=== PATIENT | male | born 1965 | race Caucasian/White ===

== ENCOUNTER 2017-08-20 02:07 | Emergency (ER) | payer OTHER, BC ==
[2017-08-20] MEDS ORDERED: Sodium Chloride 0.9% 10 ML Syringe FLUSH PRN (02:18)
[2017-08-20] MEDS ORDERED: Sodium Chloride 0.9% 1,000 ML IV ONE (02:18)
[2017-08-20] MEDS ORDERED: Ondansetron 4 MG/2 ML SDV IVPUSH ONE (02:19)
[2017-08-20] MEDS ORDERED: Morphine 2 MG/ML Syringe IVPUSH ONE (02:19)
--- NOTE | 2017-08-20 02:22 | EDM.PDOC ---
ED HPI GENERAL MEDICAL PROBLEM - General Chief Complaint: Flank Pain Stated Complaint: Right side flank pain Time Seen by Provider: 08/20/17 02:14 Source of Information: Reports: Patient, Family, RN, RN Notes Reviewed History Limitations: Reports: No Limitations - History of Present Illness INITIAL COMMENTS - FREE TEXT/NARRATIVE: Patient presents to the emergency room at [facility] complaining of right abdominal pain that wraps around to the right flank area. The patient states his symptoms began about 1:00 AM. The patient complains of severe nausea with vomiting. The patient states he has only had dry heaves. The patient denies any problems with urination. The patient states that he has a history of kidney stones. The patient states his last kidney stone was December 2014. Patient denies any fevers or chills at this point. The patient feels very weak and fatigued. The patient states he feels very flushed. Patient denies any chest pain or shortness of breath. Patient denies any diarrhea. No focal neurological deficits. Otherwise no other concerns. 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: Other (see below) (None) - Related Data Allergies Allergy/AdvReac Type Severity Reaction Status Date / Time No Known Allergies Allergy Verified 08/20/17 02:12 Home Meds: Home Meds Insulin Aspart [NovoLOG] 1 unit SQ ASDIRECTED 01/04/15 [History] atorvaSTATin [Lipitor] 20 mg PO BEDTIME 01/04/15 [History] Ondansetron HCl [Ondansetron] 4 mg PO Q8HR PRN 10 Days #30 tablet 08/20/17 [Rx] Tamsulosin HCl [Flomax] 1 tab PO DAILY 6 Days #6 cap.er.24h 08/20/17 [Rx] Past Medical History - Past Health History Medical/Surgical History: Denies Medical/Surgical History Genitourinary History: Reports: Renal Calculus Endocrine/Metabolic History: Reports: Diabetes, Type I Social & Family History - Tobacco Use Smoking Status *Q: Unknown Ever Smoked - Alcohol Use Days Per Week of Alcohol Use: 0 - Recreational Drug Use Recreational Drug Use: No ED ROS GENERAL - Review of Systems Review Of Systems: See Below Constitutional: Reports: No Symptoms. Denies: Fever, Chills, Weakness Respiratory: Reports: No Symptoms. Denies: Shortness of Breath, Cough Cardiovascular: Reports: No Symptoms. Denies: Chest Pain, Palpitations GI/Abdominal: Reports: Abdominal Pain, Nausea, Vomiting : Reports: Flank Pain Skin: Reports: No Symptoms Neurological: Reports: No Symptoms. Denies: Dizziness, Headache ED EXAM, GI/ABD - Physical Exam Exam: See Below Exam Limited By: No Limitations General Appearance: Alert, Mild Distress, Active Emesis Respiratory/Chest: No Respiratory Distress, Lungs Clear, Normal Breath Sounds Cardiovascular: Normal Peripheral Pulses, Regular Rate, Rhythm GI/Abdominal Exam: No Organomegaly, Tender, Abnormal Bowel Sounds (Hypoactive) Back Exam: CVA Tenderness (R) Neurological: Alert, Oriented Skin Exam: Warm, Dry, Intact, Normal Color, No Rash Course - Vital Signs Last Recorded V/S: Last Vital Signs Temp 36.6 C 08/20/17 02:10 Pulse 58 L 08/20/17 02:10 Resp 18 08/20/17 02:10 BP 166/94 H 08/20/17 02:30 Pulse Ox 100 08/20/17 02:10 - Orders/Labs/Meds Orders: Active Orders 24 hr Category Date Time Status Abdomen Pelvis wo Cont [CT] Stat Exams 08/20/17 02:19 Taken UA W/MICROSCOPIC [URIN] Stat Lab 08/20/17 02:18 Uncollected Sodium Chloride 0.9% [Saline Flush] Med 08/20/17 02:18 Active 10 ml FLUSH ASDIRECTED PRN Peripheral IV Insertion Adult [OM.PC] Routine Oth 08/20/17 02:18 Ordered Medication Orders Sodium Chloride (Saline Flush) 10 ml FLUSH ASDIRECTED PRN PRN Reason: Keep Vein Open Labs: Laboratory Tests 08/20/17 08/20/17 08/20/17 Range/Units 02:46 02:46 02:46 WBC 5.2 (4.0-10.0) x10^3/uL RBC 4.50 (4.5-6.0) x10^6/uL Hgb 13.7 L (14.0-18.0) g/dL Hct 38.9 L (40.0-52.0) % MCV 86.4 (78.0-93.0) fL MCH 30.4 (26.0-32.0) pg MCHC 35.2 (32.0-36.0) g/dL RDW Coeff of Rahel 12.1 (10.0-15.0) % Plt Count 201 (130-400) x10^3/uL Neut % (Auto) 51.3 (50.0-80.0) % Lymph % (Auto) 36.9 (25.0-50.0) % [place] % (Auto) 9.1 (2.0-11.0) % Eos % (Auto) 2.1 (0.0-4.0) % Baso % (Auto) 0.6 (0.2-1.2) % Sodium 144 (136-145) mmol/L Potassium 3.6 (3.5-5.1) mmol/L Chloride 105 (98-107) mmol/L Carbon Dioxide 32 (21-32) mmol/L BUN 23 H (7-18) mg/dL Creatinine 1.2 (0.70-1.30) mg/dL Est Cr Clr Drug Dosing TNP Estimated GFR (MDRD) > 60 Glucose 142 H (74-106) mg/dL Lactic Acid 0.8 (0.4-2.0) mmol/L Calcium 8.5 (8.5-10.1) mg/dL C-Reactive Protein < 0.2 (<=0.9) mg/dL Meds: Medications Generic Name Dose Route Start Last Admin Trade Name Freq PRN Reason Stop Dose Admin Sodium Chloride 10 ml 08/20/17 02:18 Saline Flush FLUSH ASDIRECTED PRN Keep Vein Open Discontinued Medications Generic Name Dose Route Start Last Admin Trade Name Freq PRN Reason Stop Dose Admin Sodium Chloride 1,000 mls @ 999 mls/hr 08/20/17 02:18 08/20/17 02:25 Normal Saline IV 08/20/17 03:18 999 mls/hr ONETIME ONE Administration Morphine Sulfate 2 mg 08/20/17 02:19 08/20/17 02:39 Morphine IVPUSH 08/20/17 02:20 2 mg ONETIME ONE Administration Ondansetron HCl 4 mg 10/06/17 02:19 08/20/17 02:31 Zofran IVPUSH 08/20/17 02:20 4 mg ONETIME ONE Administration - Radiology Interpretation Free Text/Narrative:: CT Abd/Pelvis: 2 mm right UVJ stone with mild right-sided hydronephrosis See scanned report in EMR. Departure - Departure Time of Disposition: 03:21 Disposition: Home, Self-Care 01 Condition: Good Clinical Impression: Kidney stone on right side Hydronephrosis Qualifiers: Hydronephrosis type: unspecified Qualified Code(s): N13.30 - Unspecified hydronephrosis - Discharge Information Prescriptions: Ondansetron HCl [Ondansetron] 4 mg PO Q8HR PRN 10 Days #30 tablet PRN Reason: Nausea/Vomiting Tamsulosin HCl [Flomax] 1 tab PO DAILY 6 Days #6 cap.er.24h Instructions: Flank Pain, Kidney Stones Forms: ED Department Discharge - Problem List Review Problem List Initiated/Reviewed/Updated: Yes - My Orders Last 24 Hours: My Active Orders 08/20/17 02:18 UA W/MICROSCOPIC [URIN] Stat Sodium Chloride 0.9% [Saline Flush] 10 ml FLUSH ASDIRECTED PRN Peripheral IV Insertion Adult [OM.PC] Routine 08/20/17 02:19 Abdomen Pelvis wo Cont [CT] Stat - Assessment/Plan Last 24 Hours: My Active Orders 08/20/17 02:18 UA W/MICROSCOPIC [URIN] Stat Sodium Chloride 0.9% [Saline Flush] 10 ml FLUSH ASDIRECTED PRN Peripheral IV Insertion Adult [OM.PC] Routine 08/20/17 02:19 Abdomen Pelvis wo Cont [CT] Stat
[2017-08-20 02:37] VITALS: BP 166/94
[2017-08-20 03:17] LABS: CHLORIDE,CL 105 mmol/L (98-107); SODIUM,NA 144 mmol/L (136-145)
[2017-08-20] MEDS ORDERED: Take Home: Acetaminophen/HYDROcodone 325-5 MG, 5 Tab Pack PO ONE (03:24)
== END 2017-08-20 03:46 | disposition home or self-care (01) ==
LOC: VM.ED 02:07
DX: N13.2 Hydronephrosis with renal and ureteral calculous obstruction (principal); E10.9 Type 1 diabetes mellitus without complications; Z79.4 Long term (current) use of insulin; Z79.899 Other long term (current) drug therapy
CPT/HCPCS: 36415; 74176; 80048; 83605; 85025; 86140; 96361; 96374; 96375; 99284; A9270; J2270; J2405; J7030